=== PATIENT | female | born 1995 | race Two or more races ===

== ENCOUNTER 2017-06-13 21:24 | Inpatient (IN) | payer OTHER ==
[2017-06-13 22:05] VITALS: BMI 22.1
[2017-06-13] MEDS ORDERED: Lidocaine 1% (PF) 30 ML VIAL SC PRN (22:21)
[2017-06-13] MEDS ORDERED: Ibuprofen 800 MG TAB PO PRN (22:21)
[2017-06-13] MEDS ORDERED: Ondansetron HCl/PF 4 MG/2 ML Vial IVP PRN (22:21)
[2017-06-13] MEDS ORDERED: LR / Pitocin 40 units/1000 ml 1,000 ML IV PRN (22:21)
[2017-06-13] MEDS ORDERED: HYDROcodone/Acetaminophen 5/325 mg Tablet PO PRN ×2 (22:21)
[2017-06-13] MEDS ORDERED: Promethazine HCl 25 MG/ML VIAL IM PRN (22:21)
--- NOTE | 2017-06-13 22:25 | PDOC.LDHP ---
Labor and Delivery H&P HPI: 22 yo who used to see Cheryl Barroso but was released from care from [facility] (her report) for "not compliant" as she missed last 2 visits (last seen April). here for contractions that are infrequent at 41 weeks and 2 days. HX PTB with last delivery at 34 weeks.No VB, no LOF, no PIH Sxs. Good FM. 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) Past Medical History: Past OB Deliverey at 34 weeks with operative vaginal delivery Current medications: none Allergies/Adverse Reactions: Allergies Allergy/AdvReac Type Severity Reaction Status Date / Time No Known Allergies Allergy Unverified 06/13/17 22:05 - Physical Exam Vital signs reviewed and normal: yes General: NAD, resting Heart: RRR Abdomen: gravid FHT: category 1 - Vaginal Exam cm dilated: 4 Effacement: 90% Station: -1 - Assessment L&D Assessment: term patient in labor - Plan Plan: admit to L&D, labor augmentation if indicated, informed consent obtained, anesthesia consult for pain management, other (Admit to L&D as EGA over 41 weeks. Per ACOG, induction recommended. We will give Pitocin if no spontaneous progress. Unknown GBS..use risk factors for intrapartum antibiotics per ACOG ( none identified). Pain control. As she was released from [facility], we will assume care.)
[2017-06-14 00:57] LABS: Mean Platelet Volume 7.1 fL (7.4-10.4); Red Blood Cell (RBC) Count 4.78 mill/uL (4.20-5.40); White Blood Cell (WBC) Count 6.1 thou/uL (4.8-10.8)
[2017-06-14] MEDS ORDERED: LR 500 ML/Oxytocin 10 units 500 ML IV SCH (04:00)
[2017-06-14] MEDS: Lactated Ringer's 1,000 ML IV SCH ×4 (04:04→21:34)
--- NOTE | 2017-06-14 06:47 | PDOC.EVN ---
Event Note - Event Note Event Note: @0635: AROM performed to assess MVU due to pitocin use, and last exam 6cm ( active phase). AROM performed after information given. Exam /. Cephalic. Arom moderate amount clear fluid. No FHT deceles noted. IUPC placed without issue. BPs reviewed. Penicillin in use for GBS pos.
[2017-06-14] MEDS ORDERED: CADD ONE (06:51)
[2017-06-14] MEDS ORDERED: FENTANYL ONE (06:51)
[2017-06-14] MEDS ORDERED: [UNRECOGNIZED DRUG - OTHER] ONE (06:51)
--- NOTE | 2017-06-14 07:32 | PDOC.OPDEL ---
OB Operative/Delivery Note Delivery Dr/Surgeon: Yehuda Assist: None Pre-Delivery Diagnosis: active labor Procedure/Post Delivery Dx: spontaneous vaginal delivery Weeks gestation: 41 Anesthesia: none - Findings [place] female, Apgars 9 and 9. No lacerations, no nuchal cord. Sex: female - 1 min: 9 - 5 min: 9 - Additional Findings/Plan Placenta delivered: other (within 5 minutes of child. Child delievered at 0719.) Repaired Obstetrical Laceration: none Estimated blood loss: 500 Post delivery plan: routine recovery (No repair needed. All counts correct. No epidural used. I/O cath performed pre-placental delivery for 300ml urine.)
[2017-06-14] MEDS ORDERED: Acetaminophen/Codeine 30-300mg Tablet PO PRN ×2 (07:34)
[2017-06-14] MEDS ORDERED: Measles/Mumps/Rubella 10 MCG/0.5 ML VIAL SC ONE (07:34)
[2017-06-14] MEDS ORDERED: diphenhydrAMINE 25 MG CAP PO PRN (07:34)
[2017-06-14] MEDS ORDERED: Adacel (T-DAP) 0.5 ML VIAL IM ONE (07:34)
[2017-06-14] MEDS ORDERED: Benzocaine/Menthol 20-0.5% 60 ML CAN TOP PRN (07:34)
[2017-06-14] MEDS ORDERED: Preparation H Ointment 28 GM TUBE PR PRN (07:34)
[2017-06-14] MEDS ORDERED: LR / Pitocin 40 units/1000 ml 1,000 ML IV SCH (07:45)
[2017-06-14] MEDS: Ferrous Sulfate 325 MG TAB PO SCH ×2 (14:08→17:36)
[2017-06-14] MEDS: Docusate (Surfak) 240 MG CAP PO SCH ×2 (19:09→21:32)
[2017-06-14] MEDS: Prenatal Vitamin 1 TAB PO SCH (19:09)
[2017-06-14] MEDS: Ibuprofen 800 MG TAB PO SCH ×2 (19:13→21:32)
[2017-06-15] MEDS: Ibuprofen 800 MG TAB PO SCH ×3 (06:15→17:44)
[2017-06-15 06:37] LABS: Hematocrit 28.6 % (36.0-47.0); Mean Platelet Volume 8.9 fL (7.4-10.4); Red Blood Cell (RBC) Count 3.96 mill/uL (4.20-5.40); White Blood Cell (WBC) Count 9.2 thou/uL (4.8-10.8)
--- NOTE | 2017-06-15 08:07 | PDOC.PP ---
Post Progress Note Post Day #: 1 PO intake tolerated: yes Flatus: yes Ambulation: yes Vital Signs (12 hours) Temp Pulse Resp BP 06/15/17 04:05 98.0 F 65 20 106/55 L 06/15/17 00:06 98.8 F 79 18 115/59 L Weight Weight 150 lb - Physical Examination General: NAD Cardiovascular: no m/r/g, RRR Respiratory: clear to auscultation bilaterally Abdominal: + bowel sounds, lochia Extremities: negative homans (B) Neurological: no gross focal deficits Psychiatric: A&Ox3, normal affect Result Diagrams: 06/15/17 05:17 Additional Labs: Post Labs Blood Type B POSITIVE 06/13/17 23:56 Hep Bs Antigen Non-Reactive S/CO (NonReactive) 06/13/17 23:56 (1) Vaginal delivery Code(s): O80 - ENCOUNTER FOR FULL-TERM UNCOMPLICATED DELIVERY Status: Acute - Assessment/Plan unknown gbs. will hold dc until 48 hr pp
[2017-06-15] MEDS: Prenatal Vitamin 1 TAB PO SCH (09:31)
[2017-06-15] MEDS: Docusate (Surfak) 240 MG CAP PO SCH ×2 (09:31→21:22)
[2017-06-15] MEDS: Ferrous Sulfate 325 MG TAB PO SCH ×2 (09:31→17:42)
[2017-06-15] MEDS: Lactated Ringer's 1,000 ML IV SCH ×2 (14:22→14:23)
[2017-06-16] MEDS: Lactated Ringer's 1,000 ML IV SCH ×3 (00:19→14:27)
--- NOTE | 2017-06-16 06:03 | PDOC.PP ---
Post Progress Note Post Day #: 2 PO intake tolerated: yes Flatus: yes Ambulation: yes Vital Signs (12 hours) Temp Pulse Resp BP 06/15/17 19:28 97.8 F 63 20 110/63 Weight Weight 150 lb - Physical Examination General: NAD Cardiovascular: no m/r/g, RRR Respiratory: clear to auscultation bilaterally Abdominal: + bowel sounds, lochia Extremities: negative homans (B) Neurological: no gross focal deficits Psychiatric: A&Ox3, normal affect Result Diagrams: 06/15/17 05:17 Additional Labs: Post Labs Blood Type B POSITIVE 06/13/17 23:56 Hep Bs Antigen Non-Reactive S/CO (NonReactive) 06/13/17 23:56 (1) Vaginal delivery Code(s): O80 - ENCOUNTER FOR FULL-TERM UNCOMPLICATED DELIVERY Status: Acute - Assessment/Plan dc home fu light 6 wk
[2017-06-16] MEDS: Ibuprofen 800 MG TAB PO SCH ×2 (06:06→14:26)
[2017-06-16 07:47] VITALS: BP 116/57; TEMP 98.2
[2017-06-16] MEDS: Ferrous Sulfate 325 MG TAB PO SCH (10:12)
[2017-06-16] MEDS: Docusate (Surfak) 240 MG CAP PO SCH (10:12)
[2017-06-16] MEDS: Prenatal Vitamin 1 TAB PO SCH (10:12)
== END 2017-06-16 14:30 | disposition home or self-care (01) | DRG 775 ==
LOC: L&D/OP 21:24 → L&D 22:43 → 3SW 06-14 10:09
PROVIDERS: ADMIT Obstetrics & Gynecology; ATTEND Obstetrics & Gynecology
PROC: 10E0XZZ Delivery of Products of Conception, External Approach (ICD-10-PCS; principal; 2017-06-14)
PROC: 10907ZC Drainage of Amniotic Fluid, Therapeutic from Products of Conception, Via Natural or Artificial Opening (ICD-10-PCS; 2017-06-14)
PROC: 10H07YZ Insertion of Other Device into Products of Conception, Via Natural or Artificial Opening (ICD-10-PCS; 2017-06-14)
PROC: 4A1H74Z Monitoring of Products of Conception, Cardiac Electrical Activity, Via Natural or Artificial Opening (ICD-10-PCS; 2017-06-14)
DX: O99.12 Other diseases of the blood and blood-forming organs and certain disorders involving the immune mechanism complicating childbirth (principal); D57.3 Sickle-cell trait; Z37.0 Single live birth; Z3A.41 41 weeks gestation of pregnancy
CPT/HCPCS: 36415; 85027; 86780; 87340; 87389; J2001; J7120